=== PATIENT | female | born 1960 | race Caucasian/White ===

== ENCOUNTER 2017-05-27 09:29 | Outpatient (CLI) | payer MEDICARE, BC | END 2017-05-27 09:30 | disposition home or self-care (01) | LOC: BICMAMMO 09:29 | PROVIDERS: ATTEND Family Medicine | DX: Z12.31 Encounter for screening mammogram for malignant neoplasm of breast (principal); R92.1 Mammographic calcification found on diagnostic imaging of breast; Z80.3 Family history of malignant neoplasm of breast | CPT/HCPCS: 77063; 77067 ==

== ENCOUNTER 2017-06-06 13:05 | Outpatient (CLI) | payer MEDICARE, BC | END 2017-06-06 13:06 | disposition home or self-care (01) | LOC: BICMAMMO 13:05 | PROVIDERS: ATTEND Family Medicine | DX: R92.1 Mammographic calcification found on diagnostic imaging of breast (principal); Z80.3 Family history of malignant neoplasm of breast | CPT/HCPCS: 77065; G0279 ==

== ENCOUNTER 2017-06-07 22:07 | Emergency (ER) | payer BC, MEDICARE ==
[2017-06-07] MEDS ORDERED: Proparacaine 0.5% Opth 15 ML BOT ONE (22:34)
[2017-06-07] MEDS ORDERED: Fluorescein Opthalmic Strip ONE (22:35)
== END 2017-06-07 22:51 | disposition home or self-care (01) ==
LOC: ERS 22:07
DX: H11.32 Conjunctival hemorrhage, left eye (principal); E11.9 Type 2 diabetes mellitus without complications; E03.9 Hypothyroidism, unspecified; K21.9 Gastro-esophageal reflux disease without esophagitis; E78.5 Hyperlipidemia, unspecified; M06.9 Rheumatoid arthritis, unspecified; M32.9 Systemic lupus erythematosus, unspecified; M19.90 Unspecified osteoarthritis, unspecified site; Z79.899 Other long term (current) drug therapy; Z79.84 Long term (current) use of oral hypoglycemic drugs
CPT/HCPCS: 99282

== ENCOUNTER 2018-06-08 13:42 | Outpatient (CLI) | payer BC, MEDICARE ==
--- NOTE | 2018-06-08 14:04 | RAD ---
LEFT KNEE 2 VIEWS: HISTORY: Bilateral knee osteoarthritis of knee; bilateral knee pain. FINDINGS/IMPRESSION: There are mild degenerative changes in the left knee. No fracture, dislocation, or bony destruction is seen. POS: [email or web address]
--- NOTE | 2018-06-08 14:05 | RAD ---
RIGHT KNEE 2 VIEWS: HISTORY: Bilateral primary osteoarthritis in the knee, bilateral knee pain. FINDINGS/IMPRESSION: There are mild degenerative changes. No fracture, dislocation, or bony destruction is seen. POS: [email or web address]
== END 2018-06-08 13:43 | disposition home or self-care (01) ==
LOC: BICRAD 13:42
PROVIDERS: ATTEND Internal Medicine Rheumatology
DX: M17.0 Bilateral primary osteoarthritis of knee (principal)

== ENCOUNTER 2018-06-22 11:33 | Outpatient (CLI) | payer BC, MEDICARE ==
--- NOTE | 2018-06-22 12:57 | MMO ---
Bilateral MAMMO Bilat Screen [facility]. CLINICAL HISTORY: Patient is 57 years old and is seen for screening. The patient has the following family history of breast cancer: mother. The patient has no personal history of cancer. VIEWS: The views performed were: bilateral craniocaudal; bilateral craniocaudal with tomosynthesis; and bilateral mediolateral oblique with tomosynthesis. FILMS COMPARED: The present examination has been compared to prior imaging studies performed at [facility] on 06/01/2010, 05/27/2017 and 06/06/2017, and at [facility] on 04/24/2015 and 04/26/2016. MAMMOGRAM FINDINGS: The breasts are almost entirely fat. There are no suspicious masses, suspicious calcifications, or new areas of architectural distortion. IMPRESSION: THERE IS NO MAMMOGRAPHIC EVIDENCE OF MALIGNANCY. A ROUTINE FOLLOW-UP MAMMOGRAM IN 1 YEAR IS RECOMMENDED. THE RESULTS OF THIS EXAM WERE SENT TO THE PATIENT. ACR BI-RADS Category 1 - Negative MAMMOGRAPHY NOTE: 1. A negative mammogram report should not delay a biopsy if a dominant of clinically suspicious mass is present. 2. Approximately 10% to 15% of breast cancers are not detected by mammography. 3. Adenosis and dense breasts may obscure an underlying neoplasm.
== END 2018-06-22 11:34 | disposition home or self-care (01) ==
LOC: BICMAMMO 11:33
PROVIDERS: ATTEND Family Medicine
DX: Z12.31 Encounter for screening mammogram for malignant neoplasm of breast (principal); Z80.3 Family history of malignant neoplasm of breast
CPT/HCPCS: 77063; 77067

== ENCOUNTER 2018-07-03 14:02 | Outpatient (CLI) | payer BC, MEDICARE ==
--- NOTE | 2018-07-03 14:21 | RAD ---
Left hip 2 views HISTORY: Left hip pain. Bursitis. FINDINGS: Joint spaces are preserved. Minimal osteophytosis. No acute fracture, dislocation, or aggre ssive osseous erosions. IMPRESSION: Minimal osteoarthritic changes left hip.
== END 2018-07-03 14:03 | disposition home or self-care (01) ==
LOC: BICRAD 14:02
PROVIDERS: ATTEND Family Medicine
DX: M70.62 Trochanteric bursitis, left hip (principal); M16.12 Unilateral primary osteoarthritis, left hip

== ENCOUNTER 2018-12-18 13:50 | Outpatient (CLI) | payer BC, MEDICARE ==
--- NOTE | 2018-12-18 14:27 | ULT ---
EXAM: Right lower extremity venous Doppler HISTORY: Right lower extremity pain. S/T disorder. FINDINGS: Grayscale, color-flow, Doppler evaluation, spectral analysis of the right lower extremity venous stru ctures is performed with 2-D imaging. The right common femoral, superficial femoral, popliteal, posterior tibial, proximal greater saphenous and profunda femoral veins are imaged. There is normal luminal compressibility, flow, and augmentation in the visualized deep venous structu res of the right lower extremity. IMPRESSION: No evidence of a deep vein thrombosis in the visualized deep venous structures right lower extremity.
== END 2018-12-18 13:51 | disposition home or self-care (01) ==
LOC: ULT 13:50
PROVIDERS: ATTEND Internal Medicine Rheumatology
DX: M79.89 Other specified soft tissue disorders (principal)

== ENCOUNTER 2019-01-26 18:04 | Emergency (ER) | payer BC, MEDICARE ==
[2019-01-26] MEDS ORDERED: Ketorolac Tromethamine 30 MG/ML VIAL ONE (18:43)
== END 2019-01-26 19:00 | disposition home or self-care (01) ==
LOC: ERS 18:04
DX: M54.42 Lumbago with sciatica, left side (principal); M19.90 Unspecified osteoarthritis, unspecified site; E78.5 Hyperlipidemia, unspecified; E78.00 Pure hypercholesterolemia, unspecified; F32.9 Major depressive disorder, single episode, unspecified; E03.9 Hypothyroidism, unspecified; K21.9 Gastro-esophageal reflux disease without esophagitis; F41.9 Anxiety disorder, unspecified; M06.9 Rheumatoid arthritis, unspecified
CPT/HCPCS: 96372; 99283; J1885

== ENCOUNTER 2020-06-07 11:20 | Emergency (ER) | payer BC, MEDICARE ==
[2020-06-07] MEDS ORDERED: Morphine 4 MG/ML VIAL ONE (13:11)
[2020-06-07] MEDS ORDERED: Ondansetron ODT 4 MG TAB ONE (13:11)
[2020-06-07] MEDS ORDERED: Dexamethasone 4 MG TAB ONE (13:11)
== END 2020-06-07 14:05 | disposition home or self-care (01) ==
LOC: ERS 11:20
DX: B02.9 Zoster without complications (principal); E11.9 Type 2 diabetes mellitus without complications; E03.9 Hypothyroidism, unspecified; K21.9 Gastro-esophageal reflux disease without esophagitis; E78.5 Hyperlipidemia, unspecified
CPT/HCPCS: 96372; 99282; J2270; J8540; Q0162

== ENCOUNTER 2020-07-01 10:41 | Day surgery (SDC) | payer BC, MEDICARE ==
[~2020-07-01 10:41] MED LIST: Abatacept 750 MG in Sodium Chloride 0.9% 70 ML IVPB SCH
[2020-07-01] MEDS ORDERED: Sodium Chloride 0.9% 20 ML ONE (11:08)
[2020-07-01 11:37] VITALS: BP 121/68; TEMP 98.6
[2020-07-01 12:10] LABS: #Eosinphils 0.2 thou/uL (0.0-0.7); #Lymphocytes 3.2 thou/uL (1.20-3.40); #Monocytes 0.7 thou/uL (0.11-0.59); #Neutrophils 9.1 thou/uL (1.40-6.50); %Basophils 0.2 % (0.0-1.0); %Eosinophils 1.2 % (0.0-10.0); %Lymphocytes 24.1 % (21.0-51.0); %Monocytes 5.3 % (0.0-10.0); %Neutrophils 69.3 % (42.0-75.0); Hemoglobin 13.3 g/dL (12.0-16.0); Mean Corpuscular HGB CONC 31.8 g/dL (32.0-36.0); Mean Corpuscular Hemoglobin 26.2 pg (27.0-31.0); Mean Corpuscular Volume 82.5 fL (78.0-98.0); Mean Platelet Volume 9.2 fL (7.4-10.4); Platelet Count 199 thou/uL (130-400); RBC Distribution Width 17.6 % (11.5-14.5); Red Blood Cell (RBC) Count 5.08 mill/uL (4.20-5.40); White Blood Cell (WBC) Count 13.2 thou/uL (4.8-10.8)
[2020-07-01 12:25] LABS: ALT (SGPT) 18 U/L (8-55); AST (SGOT) 16 U/L (5-34); Albumin 3.6 g/dL (3.5-5.0); Alkaline Phosphatase 107 U/L (40-110); Anion Gap 14 mmol/L (10-20); BUN (Urea Nitrogen) 15 mg/dL (9.8-20.1); Bilirubin, Total 0.3 mg/dL (0.2-1.2); Calc. Creatinine Clearance 97 mL/min (70-130); Calcium 9.7 mg/dL (7.8-10.44); Carbon Dioxide 24 mmol/L (22-29); Chloride 104 mmol/L (98-107); Glucose 113 mg/dL (70-105); Potassium 3.3 mmol/L (3.5-5.1); Protein, Total 6.6 g/dL (6.0-8.3); Sodium 139 mmol/L (136-145)
== END 2020-07-01 12:59 | disposition home or self-care (01) ==
LOC: ONC/OP 10:41
PROVIDERS: ATTEND Internal Medicine Rheumatology
DX: M06.9 Rheumatoid arthritis, unspecified (principal); Z88.2 Allergy status to sulfonamides
CPT/HCPCS: 80053; 85025; 85652; 86140; 96413; J0129; J3490

== ENCOUNTER 2020-07-15 14:31 | Day surgery (SDC) | payer MEDICARE ==
[~2020-07-15 14:31] MED LIST changes: +Sodium Chloride 0.9% 1,000 ML IV SCH
[2020-07-15] MEDS ORDERED: Sodium Chloride 0.9% 20 ML ONE (14:42)
[2020-07-15 14:47] VITALS: BP 138/84; TEMP 99.1
== END 2020-07-15 15:42 | disposition home or self-care (01) ==
LOC: ONC/OP 14:31
PROVIDERS: ATTEND Internal Medicine Rheumatology
DX: M05.9 Rheumatoid arthritis with rheumatoid factor, unspecified (principal); Z88.2 Allergy status to sulfonamides
CPT/HCPCS: 96413; J0129; J3490

== ENCOUNTER 2020-08-08 10:22 | Day surgery (SDC) | payer MEDICARE ==
[2020-08-08] MEDS ORDERED: Sodium Chloride 0.9% 1,000 ML IV SCH (10:45)
[2020-08-08 10:47] VITALS: BP 131/62; TEMP 98.4
== END 2020-08-08 12:20 | disposition home or self-care (01) ==
LOC: ONC/OP 10:22
PROVIDERS: ATTEND Internal Medicine Rheumatology
DX: M06.9 Rheumatoid arthritis, unspecified (principal); Z88.2 Allergy status to sulfonamides
CPT/HCPCS: 96413; J0129; J3490

== ENCOUNTER 2020-09-05 09:34 | Day surgery (SDC) | payer MEDICARE, MEDICAID ==
[2020-09-05 11:37] VITALS: BP 112/72; TEMP 99
[2020-09-05 11:48] LABS: Hemoglobin A1c 6.6 % (4.0-6.0)
[2020-09-05 12:10] LABS: #Basophils 0.1 thou/uL (0.0-0.2); #Eosinphils 0.1 thou/uL (0.0-0.7); #Lymphocytes 3.7 thou/uL (1.20-3.40); %Basophils 0.7 % (0.0-1.0); %Eosinophils 0.7 % (0.0-10.0); %Lymphocytes 23.5 % (21.0-51.0); %Monocytes 6.1 % (0.0-10.0); %Neutrophils 69.1 % (42.0-75.0); Hemoglobin 14.8 g/dL (12.0-16.0); Mean Corpuscular HGB CONC 32.4 g/dL (32.0-36.0); Mean Corpuscular Hemoglobin 27.6 pg (27.0-31.0); Mean Corpuscular Volume 85.3 fL (78.0-98.0); Mean Platelet Volume 9.4 fL (7.4-10.4); Platelet Count 280 thou/uL (130-400); RBC Distribution Width 16.9 % (11.5-14.5); Red Blood Cell (RBC) Count 5.36 mill/uL (4.20-5.40); White Blood Cell (WBC) Count 15.9 thou/uL (4.8-10.8)
[2020-09-05 12:13] LABS: ALT (SGPT) 36 U/L (8-55); AST (SGOT) 40 U/L (5-34); Albumin 4.3 g/dL (3.5-5.0); Alkaline Phosphatase 162 U/L (40-110); Anion Gap 16 mmol/L (10-20); BUN (Urea Nitrogen) 21 mg/dL (9.8-20.1); Bilirubin, Total 0.4 mg/dL (0.2-1.2); Calc. Creatinine Clearance 78 mL/min (70-130); Calcium 9.5 mg/dL (7.8-10.44); Carbon Dioxide 25 mmol/L (22-29); Chloride 103 mmol/L (98-107); Globulin 2.8 g/dL (2.4-3.5); Glucose 125 mg/dL (70-105); Potassium 3.5 mmol/L (3.5-5.1); Protein, Total 7.1 g/dL (6.0-8.3); Sodium 140 mmol/L (136-145)
[2020-09-05 12:29] LABS: Free T4 (Free Thyroxine) 1.12 ng/dL (0.70-1.48); Thyroid Stimulating Hormone 0.996 uIU/mL (0.35-4.94)
[2020-09-05 12:30] LABS: Vitamin D, 25 Hydroxy 45.3 ng/ml (> 30.0)
== END 2020-09-05 12:04 | disposition home or self-care (01) ==
LOC: ONC/OP 09:34
PROVIDERS: ATTEND Internal Medicine Rheumatology
DX: M06.9 Rheumatoid arthritis, unspecified (principal); Z88.2 Allergy status to sulfonamides
CPT/HCPCS: 80053; 82306; 83036; 84439; 84443; 85025; 85652; 86140; 96413; J0129; J3490

== ENCOUNTER 2021-01-01 09:32 | Day surgery (SDC) | payer MEDICARE, MEDICAID ==
[2021-01-01] MEDS ORDERED: Sodium Chloride 0.9% 20 ML ONE (09:41)
[2021-01-01 10:04] VITALS: BP 123/61; TEMP 98.3
== END 2021-01-01 12:53 | disposition home or self-care (01) ==
LOC: ONC/OP 09:32
PROVIDERS: ATTEND Internal Medicine Rheumatology
DX: M05.79 Rheumatoid arthritis with rheumatoid factor of multiple sites without organ or systems involvement (principal); Z88.2 Allergy status to sulfonamides
CPT/HCPCS: 96413; J0129; J3490